=== PATIENT | female | born 1985 ===

== ENCOUNTER 2018-11-15 22:18 | Emergency (ER) | payer MEDICAID ==
[~2018-11-15] VITALS: Ht 165.1 cm; Wt 45.5 kg
[2018-11-15 22:23] VITALS: TEMP 99
[2018-11-15 23:42] LABS: COLLECTION METHOD CLEAN CATCH
[2018-11-15 23:45] LABS: BASO % 0.1 % (0.0-2.0); EOS # 0.1 (0.0-0.7); EOS % 1.2 % (0-4.0); GRAN # 5.8 (1.4-6.5); GRAN % 70.4 % (42.2-75.2); HEMATOCRIT 38.4 % (37.0-47.0); HEMOGLOBIN 12.5 g/dl (12.5-16.0); LYMPH # 1.5 (1.2-3.4); LYMPH % 18.4 % (20.0-51.0); MEAN CELL VOLUME 91 fl (80.0-100.0); MEAN CORPUSCULAR HEMOGLOBIN 30 pg (27.0-31.0); MEAN CORPUSCULAR HGB CONC 33 g/dl (33.0-37.0); MEAN PLATELET VOLUME 10.3 fl (7.4-10.4); MONO # 0.8 (0.1-0.6); MONO % 9.5 % (1.7-9.3); PLATELET COUNT 262 K/mm3 (130-400); RED BLOOD COUNT 4.22 M/mm3 (4.10-5.30); REDCELL DISTRIBUTION WIDTH-CV 14.9 % (11.5-14.5)
[2018-11-15 23:58] LABS: ALBUMIN 4.4 gm/dL (3.5-5.0); BILIRUBIN,TOTAL 0.5 mg/dL (0.0-1.0); CALCIUM 9.4 mg/dL (8.4-10.2); CREATININE, serum 0.64 mg/dL (0.52-1.25); POTASSIUM 3.8 mmol/L (3.4-5.0); TOTAL PROTEIN 8.7 gm/dL (6.4-8.2)
[2018-11-16] LABS: C-REACTIVE PROTEIN 0.5 mg/dL (0.0-0.9)
[2018-11-16 00:06] LABS: MUCOUS Present /lpf; PH 5 (5-8); SQUAMOUS EPITHELIAL 0-2 /hpf; URINE APPEARANCE Clear; URINE BACTERIA None Seen /hpf; URINE BILIRUBIN Negative (NEGATIVE); URINE BLOOD Negative (NEGATIVE); URINE COLOR Amber; URINE GLUCOSE Negative (NEGATIVE); URINE KETONE 2+ (NEGATIVE); URINE LEUKOCYTE ESTERASE Negative (NEGATIVE); URINE NITRATE Negative (NEGATIVE); URINE PROTEIN(semi-quant) 2+ (NEGATIVE); URINE RBC 0-2 /hpf
[2018-11-16] MEDS ORDERED: DOXYCYCLINE 10100 MG PO (01:41)
[2018-11-16 02:02] VITALS: BP 90/51; PULSE 73
== END 2018-11-16 02:06 | disposition home or self-care (01) ==
LOC: COL.ER 22:18
PROVIDERS: Nurse Practitioner
DX: J18.1 Lobar pneumonia, unspecified organism (principal)
CPT/HCPCS: J1885; J7030

== ENCOUNTER 2019-08-25 10:02 | Emergency (ER) | payer SELFPAY ==
[~2019-08-25] VITALS: Ht 165.1 cm; Wt 54.5 kg
[~2019-08-25 10:02] MED LIST: DOXYCYCLINE 10100 MG PO
[2019-08-25 10:03] VITALS: TEMP 97.6
[2019-08-25 11:01] LABS: BASO % 0.1 % (0.0-2.0); EOS # 0.3 (0.0-0.7); GRAN # 8.3 (1.4-6.5); GRAN % 79.1 % (42.2-75.2); HEMOGLOBIN 12.2 g/dl (12.5-16.0); LYMPH # 1.3 (1.2-3.4); LYMPH % 12.5 % (20.0-51.0); MEAN CELL VOLUME 93 fl (80.0-100.0); MEAN CORPUSCULAR HEMOGLOBIN 31 pg (27.0-31.0); MEAN CORPUSCULAR HGB CONC 33 g/dl (33.0-37.0); MEAN PLATELET VOLUME 9.8 fl (7.4-10.4); MONO # 0.5 (0.1-0.6); MONO % 4.7 % (1.7-9.3); PLATELET COUNT 302 K/mm3 (130-400); RED BLOOD COUNT 3.95 M/mm3 (4.10-5.30); REDCELL DISTRIBUTION WIDTH-CV 12.6 % (11.5-14.5)
[2019-08-25 11:14] LABS: ALANINE AMINOTRANSFERASE < 6 U/L (9-52); ALBUMIN 4.6 gm/dL (3.5-5.0); ALKALINE PHOSPHATASE 70 U/L (50-136); ANION GAP 11 mmol/L (7-16); AST,SGOT 20 U/L (15-37); BILIRUBIN,TOTAL 0.3 mg/dL (0.0-1.0); BLOOD UREA NITROGEN 10 mg/dL (7-17); C-REACTIVE PROTEIN 0.8 mg/dL (0.0-0.9); CALCIUM 9.6 mg/dL (8.4-10.2); CARBON DIOXIDE 24 mmol/L (22-30); CHLORIDE 105 mmol/L (98-107); CREATININE, serum 0.51 (0.52-1.25); GLUCOSE 106 mg/dL (74-106); POTASSIUM 4.2 mmol/L (3.4-5.0); SODIUM 140 mmol/L (137-145); TOTAL PROTEIN 9.3 gm/dL (6.4-8.2)
[2019-08-25 11:16] LABS: HEMATOCRIT 36.8 % (37.0-47.0)
[2019-08-25 12:25] LABS: COLLECTION METHOD CLEAN CATCH
[2019-08-25 12:38] LABS: MUCOUS Present /lpf; PH 8 (5-8); SQUAMOUS EPITHELIAL 0-2 /hpf; URINE APPEARANCE Clear; URINE BACTERIA Moderate /hpf; URINE BILIRUBIN Negative (NEGATIVE); URINE BLOOD Negative (NEGATIVE); URINE COLOR Yellow; URINE GLUCOSE Negative (NEGATIVE); URINE KETONE 1+ (NEGATIVE); URINE LEUKOCYTE ESTERASE Trace (NEGATIVE); URINE NITRATE Positive (NEGATIVE); URINE PROTEIN(semi-quant) Negative (NEGATIVE); URINE RBC 0-2 /hpf; URINE UROBILINOGEN Negative (NEGATIVE)
[2019-08-25] MEDS ORDERED: ILOTYCIN5 MG/GM OP (13:56)
[2019-08-25] MEDS ORDERED: BACTRIM DS 8001 TAB PO (13:56)
[2019-08-25] MEDS ORDERED: OMNICEF 300MG300 MG PO (13:56)
--- NOTE | 2019-08-25 15:58 | NUR ---
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 [place] student provided a medication voucher to [facility] for the patient. [place] student faxed scripts and voucher to [facility] at [facility]. [place] student provided the scripts and the original voucher to the patient. The park for the voucher is $42.69. [place] daigle collaborated the above information with the patient's nurse.
[2019-08-25 16:15] VITALS: BP 109/82; PULSE 76
== END 2019-08-25 16:15 | disposition home or self-care (01) ==
LOC: COL.ER 10:02
PROVIDERS: Physician Assistant
DX: H00.036 Abscess of eyelid left eye, unspecified eyelid (principal); N30.00 Acute cystitis without hematuria; B99.9 Unspecified infectious disease; H10.89 Other conjunctivitis
CPT/HCPCS: J0696; J1885; J2405; J7030; Q9967